=== PATIENT | female | born 1960 | race Caucasian/White ===

== ENCOUNTER → 2024-01-14 13:44 | Outpatient (REF) | payer BC, SELFPAY ==
[2024-01-14 15:53] LABS: % Immature Granulocytes 0.2 % (0-0.5); % Lymphocytes 39.4 % (20.5-51.1); % Monocytes 8.7 % (1.7-9.3); % Neutrophils 49.7 % (42.2-75.2); Absolute Basophils 0.1 10^3/uL (0-0.2); Absolute Eosinophils 0.1 10^3/uL (0-0.7); Absolute Lymphocytes 2.1 10^3/uL (1.2-3.4); Absolute Monocytes 0.5 10^3/uL (0.1-0.6); Absolute Neutrophils 2.6 10^3/uL (1.4-6.5); Hematocrit 36.9 % (37.0-47.0); Hemoglobin 12.3 g/dL (12.0-16.0); Mean Corp Hgb Conc. 33.3 g/dL (33.0-37.0); Mean Corpuscular Hgb 31.9 pg (27.0-31.0); Mean Corpuscular Volume 95.6 fL (81.0-99.0); Mean Platelet Volume 9.8 fL (7.4-10.4); Nucleated Red Blood Cells % 0 %; Platelet Count 322 10^3/uL (130-400); Red Blood Cell Count 3.86 10^6/uL (4.20-5.40); Red Cell Dist. Width 13.1 % (11.5-14.5); White Blood Cell Count 5.2 10^3/uL (4.8-10.8)
[2024-01-14 16:03] LABS: Free T4 0.76 ng/dl (0.78-2.19)
[2024-01-14 16:17] LABS: TSH 3.96 uIU/ml (0.47-4.68)
== END ==
LOC: HWWDC 13:44
PROVIDERS: ATTENDING PHYSICIAN Family Medicine
DX: E06.3 Autoimmune thyroiditis (principal); R79.89 Other specified abnormal findings of blood chemistry; Z12.31 Encounter for screening mammogram for malignant neoplasm of breast
CPT/HCPCS: 36415; 84439; 84443; 85025

== ENCOUNTER → 2025-01-17 15:51 | Outpatient (REF) | payer OTHER, SELFPAY | LOC: WDC 15:51 | PROVIDERS: ATTENDING PHYSICIAN Family Medicine; REFERRING PHYSICIAN Obstetrics & Gynecology | DX: Z12.31 Encounter for screening mammogram for malignant neoplasm of breast (principal) | CPT/HCPCS: 77063; 77067 ==

== ENCOUNTER → 2025-05-09 11:56 | Outpatient (REF) | payer OTHER, SELFPAY ==
[2025-05-09 16:20] LABS: ALT (SGPT) 21 U/L (0-35); AST (SGOT) 29 U/L (14-36); Albumin 4.3 g/dl (3.5-5.0); Alkaline Phosphatase 78 U/L (38-126); Blood Urea Nitrogen 15 mg/dl (7-17); Calcium 9.3 mg/dl (8.4-10.2); Carbon Dioxide 29 mmol/L (22-30); Chloride 103 mmol/L (98-107); Glucose 98 mg/dl (70-99); HDL Cholesterol 90 mg/dl; LDL Cholesterol, Calculated 140 mg/dl; Potassium 4.4 mmol/L (3.5-5.1); Sodium 137 mmol/L (135-145); Total Protein 7.0 g/dl (6.3-8.2); Very Low Density Lipoprotein 14 mg/dl (0-30); eGFR > 60.00
[2025-05-09 16:22] LABS: Hematocrit 38.8 % (37.0-47.0); Hemoglobin 12.6 g/dL (12.0-16.0); Mean Corp Hgb Conc. 32.5 g/dL (33.0-37.0); Mean Corpuscular Volume 96.3 fL (81.0-99.0); Nucleated Red Blood Cells % 0 %; Platelet Count 310 10^3/uL (130-400); Red Cell Dist. Width 12.7 % (11.5-14.5)
[2025-05-09 16:50] LABS: TSH 3.24 uIU/ml (0.47-4.68)
== END ==
LOC: HWLAB 11:56
PROVIDERS: ATTENDING PHYSICIAN Family Medicine
DX: E06.3 Autoimmune thyroiditis (principal); E78.2 Mixed hyperlipidemia; N20.0 Calculus of kidney
CPT/HCPCS: 36415; 80053; 80061; 84439; 84443; 85025

== ENCOUNTER → 2025-05-30 14:13 | Outpatient (REF) | payer OTHER, SELFPAY | LOC: WDC 14:13 | PROVIDERS: ATTENDING PHYSICIAN Family Medicine | DX: R92.30 Dense breasts, unspecified (principal) | CPT/HCPCS: 76641 ==